=== PATIENT | female | born 1965 ===

== ENCOUNTER → 2017-01-14 | Outpatient (CLI) | payer MEDICAID, OTHER ==
[2016-09-11 12:05] VITALS: BP 104/55
[~2017-01-14] MED LIST: BUPR150T11 PO; CALC667T PO; CYCL10TA2 PO; DAPT500V3 IV; DOCU100C28 PO; FLUO20CA8 PO; GABA600T2 PO; HYDR-2758 PO; HYDR200T5 PO; LISI-334 PO; METO25TA4 PO; PREG150C PO; PREG50CA PO; TRAZ50TA15 PO; [UNRECOGNIZED DRUG - CODE] IV
[2017-01-14 15:17] LABS: BASO # 0.2 x10^3/uL (0.0-0.2); BASO % 3 % (0-3); EOS % 9 % (0-3); HEMATOCRIT 31.8 % (36.0-47.0); HEMOGLOBIN 10.5 g/dL (12.0-15.5); LYMPH # 1.7 x10^3/uL (1.0-4.8); LYMPH % 25 % (24-48); MEAN CORPUSCULAR HEMOGLOBIN 29 pg (25-35); MEAN CORPUSCULAR HGB CONC 33 g/dL (31-37); MEAN CORPUSCULAR VOLUME 89 fL (79-100); MONO % 8 % (0-9); NEUT % 54 % (31-73); PLATELET COUNT 334 x10^3/uL (140-400); RED BLOOD COUNT 3.58 x10^6/uL (3.50-5.40); RED CELL DISTRIBUTION WIDTH 15.3 % (11.5-14.5); WHITE BLOOD COUNT 6.7 x10^3/uL (4.0-11.0)
[2017-01-14 15:34] LABS: ALBUMIN 3.8 g/dL (3.4-5.0); ALBUMIN/GLOBULIN RATIO 1.2 (1.0-1.7); CALCIUM 9.1 mg/dL (8.5-10.1); CREATININE 2.5 mg/dL (0.6-1.0); GFR 20.5; POTASSIUM 4.6 mmol/L (3.5-5.1); TOTAL BILIRUBIN 0.3 mg/dL (0.2-1.0)
== END | disposition home or self-care (01) ==
LOC: SPEC 14:44
PROVIDERS: ATTEND Internal Medicine Infectious Disease
DX: T80.211D Bloodstream infection due to central venous catheter, subsequent encounter (principal); N18.6 End stage renal disease; X58.XXXD Exposure to other specified factors, subsequent encounter
CPT/HCPCS: 36415; 80053; 82550; 85025; 85651